=== PATIENT | male | born 1945 | race Hispanic/Latino ===

== ENCOUNTER 2021-12-16 07:05 | Day surgery (SDC) | payer OTHER ==
--- NOTE | 2021-12-12 11:52 | RAD REPORT ---
EXAM DESCRIPTION: RAD - Chest Pa And Lat (2 Views) - 12/12/2021 11:45 am CLINICAL HISTORY: Pre op pending hernia surgery COMPARISON: No comparisons FINDINGS: Lines: None. Lungs: No evidence of edema or pneumonia. Pleural: No significant pleural effusions or pneumothorax. Cardiac: The heart size is within normal limits. Mediastinum: Within normal limits. Bones: No acute fractures. Other: None IMPRESSION: No acute cardiopulmonary disease.
[2021-12-12 11:59] LABS: Absolute Lymphocytes (CBC) 1.4 K/uL (0.7-4.9); Hematocrit 40.3 % (39.6-49.0); Lymphocytes % 28.3 % (15.3-44.8); MCV 86.5 fL (80-100); MPV 7.8 fL (7.6-11.3); RBC Red Blood Cell Count 4.65 M/uL (4.33-5.43)
[2021-12-12 12:15] LABS: SARS-CoV-2 Antigen Rapid Res Negative (Negative)
--- NOTE | 2021-12-12 13:44 | EKG ---
Test Date: 2021-12-12 Test Time: 11:29:19 Literacy Coordinator: LUIS MEASUREMENT RESULTS: Intervals: Rate: 80 [place]: QRSD: 86 QT: 418 QTc: 482 Thompson: P: [place]: QRS: 75 T: 72 INTERPRETIVE STATEMENTS: Atrial fibrillation Prolonged QT Abnormal ECG No previous ECG available for comparison Electronically Signed On 12-12-21 13:43:41 CDT by Tommy Griffin
[2021-12-16] MEDS ORDERED: Ringers Lactate 1,000 ML IV ONE (07:37)
[2021-12-16] MEDS ORDERED: CEFAZOLIN SODIUM 1 GM/VIAL ONE (07:37)
[2021-12-16 08:07] LABS: Potassium 2.8 mmol/L (3.5-5.1)
[2021-12-16] MEDS ORDERED: NS KCL 20MEQ 1,000 ML IV SCH (09:00)
[2021-12-16] MEDS ORDERED: MIDAZOLAM HCL 2 MG/2 ML INJ ONE (11:27)
[2021-12-16] MEDS ORDERED: propofoL 200 MG/20 ML VIAL IV ONE (11:27)
[2021-12-16] MEDS ORDERED: dexAMETHasone 10 MG/ML VIAL ONE (11:27)
[2021-12-16] MEDS ORDERED: ONDANSETRON 4 MG/2 ML VIAL ONE (11:27)
[2021-12-16] MEDS ORDERED: FENTANYL CITR 100 MCG/2 ML ONE (11:27)
[2021-12-16] MEDS ORDERED: LIDOCAINE 1% MPF 5 ML VIAL ONE (11:28)
[2021-12-16] MEDS ORDERED: ROCURONIUM 50 MG/5 ML VIAL IV ONE (12:33)
[2021-12-16] MEDS ORDERED: KETOROLAC 30 MG/ML INJ ONE (12:47)
--- NOTE | 2021-12-16 13:07 | P.BOP ---
Preoperative diagnosis: reducible tender right inguinal hernia Postoperative diagnosis: same` Primary procedure: Open repair of reducible tender right inguinal hernia with mesh Gis Instructor: CINDY BUCHANAN (TELEPHONE ANSWERING SERVICE OPERATOR) Estimated blood loss: <10cc Specimen: sac and lipoma of cord Findings: as above Anesthesia: General Complications: None Implants: medium mesh and plug Transferred to: Recovery Room Condition: Good
[2021-12-16 14:04] VITALS: BP 145/87; TEMP 97; O2SAT 98
--- NOTE | 2021-12-17 01:28 | OP ---
Date of Procedure: 12/16/2021 Surgeon: Armand Haas MD Scudding Inspector: Tigits Guerrier. Preoperative Diagnosis: Reducible tender right inguinal hernia. Postoperative Diagnosis: Reducible tender right inguinal hernia. Procedure: Open repair of reducible tender right inguinal hernia, large with mesh. Estimated Blood Loss: Less than 10 cc. Specimen: Hernia sac and lipoma of the cord. Anesthesia: General plus local. Implant: Medium mesh and plug. Indications: This is the case of a 76-year-old patient, who comes to us with a large tender right in guinal hernia, is coming into the scrotal region back and forth, is becoming more difficult to reduce , so he wants that repaired. The benefits, alternatives, and risks of open repair with mesh fully ex plained, which include, but not limited to infection, bleeding, damage to adjacent structures, anesth esia complication, recurrence, CA, or even . He also understands this may not relieve the sympt oms. He might need more than one surgical intervention. He understands we are going to use mesh in that region with pros and cons of mesh fully explained. All the questions were answered to his satis faction. He signed a consent. The area of concern was marked by me and the patient in the holding r oom. Description Of Procedure: The patient was brought to the operating room and placed in supine positio n. Anesthesia was done without complication. Right inguinal and abdomen was prepped and draped in s terile fashion. An incision was made in the right inguinal region after time-out. Incision was mas ied down to Simran's fascia, which was opened under direct vision. The ilioinguinal nerve and iliohy pogastric nerve, were protected behind external oblique aponeurosis. Jewett placed around the sperm atic cord. Hernia sac was identified and dissected from the spermatic cord structures protecting the vas deferens and the rest of the structures. Lipoma of the cord was also identified. Hernia sac wa s opened. We were able to identify the area and then suture ligated the region after making sure the intestines were all the way with #1 Prolene twice. The lipoma of the cord was ligated with 0 chromi c, making sure once again the spermatic cord structures were intact. At that moment, I placed a medi um mesh plug in the deep inguinal ring, secured in place with VersaTack alize and the mesh sheet pl aced in the inguinal canal, securing that with VersaTack to the pubic tubercle, shelving edge of the inguinal ligament, transversalis fascia, and the tail looped around the spermatic cord without a stra ngulation. The area was irrigated. At that moment, we brought in the ilioinguinal nerve and iliohyp ogastric nerve back into the inguinal canal, reconstructed the superficial inguinal ring with 2-0 Pro emmie in a running fashion making sure the nerves were not included. The area was irrigated. Simran fascia closed with 3-0 chromic and skin with alize. Sponge count and instrument counts correct. P atient tolerated the procedure well. Patient was sent to Recovery in stable condition. At the end o f the case, testicles were in the scrotum. Disposition: Home. Activity: As tolerated. No heavy lifting. Followup: In my office in one week. Call for appointment [phone]. Instructions: Keep area dry for 48 hours, then may shower. Use cold compress of the right inguinal region for 24 hours. RAUL/JOHAN Voice ID: [id number] Report ID: [id number]
== END 2021-12-16 14:20 | disposition home or self-care (01) ==
LOC: OR 07:05
PROVIDERS: ATTEND Surgery
PROC: 0YU50JZ Supplement Right Inguinal Region with Synthetic Substitute, Open Approach (ICD-10-PCS; principal; 2021-12-16 08:30)
DX: K40.90 Unilateral inguinal hernia, without obstruction or gangrene, not specified as recurrent (principal); Z20.822 Contact with and (suspected) exposure to COVID-19
CPT/HCPCS: 93005; 85025; 80048; 36415 ×2; 88302; 71046; 87811; 49505; J2704; J2001; J3010; J1100; J7120; J2405; J0690; J3480; J2250